=== PATIENT | male | born 1935 | race Caucasian/White ===

== ENCOUNTER 2022-03-13 10:44 | Outpatient (CLI) | payer MEDICARE, OTHER | END 2022-03-13 10:45 | disposition home or self-care (01) | LOC: CSHCP 10:44 | PROVIDERS: ATTEND Internal Medicine Cardiovascular Disease | DX: Z95.1 Presence of aortocoronary bypass graft (principal); J98.4 Other disorders of lung; J44.9 Chronic obstructive pulmonary disease, unspecified | CPT/HCPCS: 94060; 94726; 94729; 94760 ==